=== PATIENT | female | born 1980 | race Caucasian/White ===

== ENCOUNTER → 2021-06-16 | Outpatient (CLI) | payer OTHER ==
[~2021-06-16] MED LIST: HYDR1TAB75 PO; IBP800T PO
--- NOTE | 2021-06-16 10:00 | Diagnostic Imaging Report ---
INDICATION: Right hand injury 3 views of the right hand show no fracture, dislocation or other acute abnormalities. IMPRESSION: Negative right hand. Dictated by: Dictated on workstation # [id number]
== END ==
LOC: RAD FS 09:14
PROVIDERS: ATTEND Nurse Practitioner Family
DX: S69.91XA Unspecified injury of right wrist, hand and finger(s), initial encounter (principal); X58.XXXA Exposure to other specified factors, initial encounter
CPT/HCPCS: 73130